=== PATIENT | male | born 1955 | race Caucasian/White ===

== ENCOUNTER 2016-08-03 18:08 | Observation (INO) | payer OTHER ==
[~2016-08-03] VITALS: Ht 177.8 cm; Wt 80.0 kg
[2016-08-03 18:16] VITALS: BP 173/95; PULSE 128; RESP 18; TEMP 98.2; O2SAT 100
[2016-08-03 18:20] VITALS: O2SAT 97
[2016-08-03] MEDS ORDERED: SODIUM CHLOR 0.9% 1000 ML INJ 1,000 ML IV SCH (18:25)
[2016-08-03 18:35] LABS: AUTOMATED NEUTROPHIL # 7.9 TH/MM3 (1.8-7.7); BASOPHIL # 0.1 TH/MM3 (0-0.2); BASOPHIL % 0.4 % (0.0-2.0); EOSINOPHIL # 0.3 TH/MM3 (0-0.4); EOSINOPHIL % 2.1 % (0.0-4.0); HEMATOCRIT 40.9 % (39.0-51.0); HEMO FLAGS DIFF FINAL; LYMPH % 25.4 % (9.0-44.0); LYMPHOCYTE # 3.1 TH/MM3 (1.0-4.8); MEAN CELL VOLUME 99.8 FL (80.0-100.0); MEAN CORPUSCULAR HEMOGLOBIN 33.8 PG (27.0-34.0); MEAN CORPUSCULAR HGB CONC 33.8 % (32.0-36.0); MONO % 6.4 % (0.0-8.0); NEUT % 65.7 % (16.0-70.0); PLATELET COUNT 311 TH/MM3 (150-450); RED CELL DISTRIBUTION WIDTH 13.6 % (11.6-17.2); WHITE BLOOD COUNT 12.1 TH/MM3 (4.0-11.0)
[2016-08-03 18:48] LABS: APTT (PATIENT) 21.5 SEC (24.3-30.1); INTERNATIONAL NORMALIZED RATIO 0.9 RATIO; PROTHROMBIN TIME - PATIENT 10.2 SEC (9.8-11.6)
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
[2016-08-03 18:56] LABS: ANION GAP 18 MEQ/L (5-15); AST (GOT) 19 U/L (15-37); BICARBONATE 18.2 MEQ/L (21.0-32.0); BLOOD UREA NITROGEN 19 MG/DL (7-18); CHLORIDE 105 MEQ/L (98-107); GLOMERULAR FILTRATION RATE 48 ML/MIN (>89); MAGNESIUM 2.8 MG/DL (1.5-2.5); POTASSIUM 3.4 MEQ/L (3.5-5.1); SODIUM (NA) 141 MEQ/L (136-145)
[2016-08-03 19:08] LABS: ALKALINE PHOSPHATASE 87 U/L (45-117); ALT (GPT) 27 U/L (12-78); CREATINE KINASE 101 U/L (39-308); TOTAL BILIRUBIN ADULT 0.5 MG/DL (0.2-1.0)
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
[2016-08-03 19:25] VITALS: BP 173/80; PULSE 100; RESP 18; O2SAT 98
[2016-08-03 19:38] LABS: CKMB 1.4 NG/ML (0.5-3.6)
[2016-08-03 19:40] LABS: BLOOD GAS VENOUS BASE EXCESS -7.6 mmol/L (-2-2); BLOOD GAS VENOUS HCO3 17 mmol/L (22-26); BLOOD GAS VENOUS O2 CONTENT 10.7 Vol % (9.0-17.0); BLOOD GAS VENOUS O2 HGB SAT 78 % (70-76); BLOOD GAS VENOUS PCO2 28 mmHg (44-48); BLOOD GAS VENOUS PO2 44 mmHg (35-40); BLOOD GAS VENOUS pH 7.38 (7.360-7.400); CRITICAL VALUE NO; TEMP CORR TO 98.6
[2016-08-03 19:41] LABS: FIO2 21 %; OXYGEN DEVICE ROOM AIR; STAT YES
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
[2016-08-03] MEDS ORDERED: ONDANSETRON HCL 4 MG/2 ML VIAL IVP PRN (20:30)
[2016-08-03] MEDS ORDERED: ACETAMINOPHEN 325 MG TAB PO PRN (20:30)
[2016-08-03] MEDS ORDERED: LORazepam 2 MG/ML VIAL IV PUSH PRN (20:30)
[2016-08-03] MEDS ORDERED: BISACODYL 10 MG SUPP RECTAL PRN (20:30)
[2016-08-03] MEDS ORDERED: ACETAMINOPHEN/HYDROcodone 325 MG/10 MG TAB PO PRN (20:30)
[2016-08-03] MEDS ORDERED: SODIUM CHLORIDE 0.9% FLUSH 10 ML FLUSH IV FLUSH PRN (20:30)
[2016-08-03] MEDS: ACETAMINOPHEN/HYDROcodone 325 MG/5 MG TAB PO PRN (20:54)
[2016-08-03 20:55] LABS: BLOOD, URINE NEG (NEG); COMMENT (UR) CULT NOT INDICATED; CULTURE IF INDICATED CULT NOT INDICATED; GLUCOSE,URINE NEG (NEG); HYALINE CAST, URINE 10 /lpf (RARE); KETONE, URINE NEG (NEG); MUCUS URINE FEW /lpf (OCC); NITRITE,URINE NEG (NEG); PH, URINE 5.5 (5.0-8.5); URINE COLOR YELLOW (YELLW/STRAW)
[2016-08-03] MEDS: SODIUM CHLORIDE 0.9% FLUSH 10 ML FLUSH IV FLUSH SCH (21:00)
[2016-08-03 21:03] LABS: AMPHETAMINE, URINE NEG (NEG); BARBITURATES, URINE NEG (NEG); COCAINE, URINE NEG (NEG)
[2016-08-03] MEDS: SODIUM CHLOR 0.9% 1000 ML INJ 1,000 ML IV SCH (21:14)
[2016-08-03 22:05] VITALS: BP 155/73; PULSE 99; RESP 18; O2SAT 98
[2016-08-03 22:37] VITALS: BP 145/85; PULSE 94; RESP 20; TEMP 97; O2SAT 97
[2016-08-04] MEDS: ACETAMINOPHEN/HYDROcodone 325 MG/5 MG TAB PO PRN (00:37)
[2016-08-04] MEDS: SODIUM CHLOR 0.9% 1000 ML INJ 1,000 ML IV SCH (04:15)
[2016-08-04 04:21] VITALS: BP 157/72; PULSE 84; RESP 20; TEMP 98.4; O2SAT 95
[2016-08-04 07:36] VITALS: BP 135/75; PULSE 82; RESP 20; TEMP 98.7; O2SAT 94
[2016-08-04 07:52] LABS: AUTOMATED NEUTROPHIL # 6.9 TH/MM3 (1.8-7.7); BASOPHIL % 0.4 % (0.0-2.0); EOSINOPHIL # 0.1 TH/MM3 (0-0.4); EOSINOPHIL % 0.8 % (0.0-4.0); HEMATOCRIT 35.9 % (39.0-51.0); HEMO FLAGS DIFF FINAL; LYMPH % 10.5 % (9.0-44.0); LYMPHOCYTE # 0.9 TH/MM3 (1.0-4.8); MEAN CELL VOLUME 99.5 FL (80.0-100.0); MEAN CORPUSCULAR HEMOGLOBIN 33.6 PG (27.0-34.0); MEAN CORPUSCULAR HGB CONC 33.7 % (32.0-36.0); MONO % 5.7 % (0.0-8.0); NEUT % 82.6 % (16.0-70.0); PLATELET COUNT 227 TH/MM3 (150-450); RED CELL DISTRIBUTION WIDTH 13.8 % (11.6-17.2); WHITE BLOOD COUNT 8.3 TH/MM3 (4.0-11.0)
[2016-08-04 08:05] LABS: ALKALINE PHOSPHATASE 69 U/L (45-117); ALT (GPT) 23 U/L (12-78); ANION GAP 7 MEQ/L (5-15); AST (GOT) 31 U/L (15-37); BICARBONATE 26.5 MEQ/L (21.0-32.0); BLOOD UREA NITROGEN 15 MG/DL (7-18); CHLORIDE 107 MEQ/L (98-107); GLOMERULAR FILTRATION RATE 63 ML/MIN (>89); SODIUM (NA) 140 MEQ/L (136-145); TOTAL BILIRUBIN ADULT 1.2 MG/DL (0.2-1.0)
[2016-08-04] MEDS: SODIUM CHLORIDE 0.9% FLUSH 10 ML FLUSH IV FLUSH SCH (08:11)
[2016-08-04 08:36] LABS: POTASSIUM 3.8 MEQ/L (3.5-5.1)
[2016-08-04 09:20] VITALS: RESP 18
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
[2016-08-04 14:34] LABS: FREE T4 1.11 NG/DL (0.76-1.46)
--- NOTE | 2016-08-04 15:36 | EKG ---
Date Performed: 08/03/2016 Time Performed: 18:19:01 PTAGE: 60 years EKG: SINUS TACHYCARDIA NONSPECIFIC T-WAVE ABNORMALITY ABNORMAL RHYTHM ECG PREVIOUS TRACING : 02/23/2016 23.48 DOCTOR: Allen Rene Interpretating Date/Time 08/04/2016 15:31:37
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
[2016-09-11] MEDS ORDERED: GABA100C4 PO (11:13)
== END 2016-08-04 11:36 | disposition home or self-care (01) ==
LOC: NEPE 18:08 → NEDA 20:19 → NEPHCDU 22:33
PROVIDERS: ADMIT Internal Medicine; ATTEND Internal Medicine
DX: R56.9 Unspecified convulsions (principal); R55 Syncope and collapse; E87.2 Acidosis; N17.9 Acute kidney failure, unspecified; E86.0 Dehydration; F17.200 Nicotine dependence, unspecified, uncomplicated; Z79.01 Long term (current) use of anticoagulants; V47.5XXA Car driver injured in collision with fixed or stationary object in traffic accident, initial encounter; Y92.410 Unspecified street and highway as the place of occurrence of the external cause
CPT/HCPCS: 70450; 71010; 72125; 80053; 80307; 81001; 82550; 82552; 82607; 82805; 83605; 83735; 84439; 84443; 84484; 85025; 85610; 85652; 85730; 93005; 95819; 96360; 99285; G0378; J7030

== ENCOUNTER → 2016-09-29 | Outpatient (CLI) | payer OTHER ==
[~2016-09-29] MED LIST: GABA100C4 PO
[2016-09-29 10:52] LABS: HDL CHOLESTEROL 57.3 MG/DL (40.0-60.0)
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
== END ==
LOC: CLAB 09:44
PROVIDERS: ATTEND Family Medicine
DX: M54.9 Dorsalgia, unspecified (principal); R56.9 Unspecified convulsions; F10.10 Alcohol abuse, uncomplicated; Z72.0 Tobacco use
CPT/HCPCS: 36415; 72110; 80061